=== PATIENT | female | born 1940 | race Caucasian/White ===

== ENCOUNTER → 2016-10-19 | Outpatient (CLI) | payer OTHER ==
[~2016-10-19] VITALS: Ht 152.4 cm; Wt 82.3 kg
[~2016-10-19] MED LIST: ALLEGRA ALLERG180 MG PO; ANTIVERT25 MG PO; BENTYL20 MG PO; IMODIUM MS REL1 EACH PO; JANUMET 50/51 TABLET PO; KEFLEX500 MG PO; LEVOTHYROXINE112 MCG PO; LO-DOSE ASPIRIN81 M2 PO; PAXIL40 MG PO; PROTONIX40 MG PO; ZOFRAN4 MG PO
[2016-10-19 12:22] LABS: POINT-OF-CARE METER ID UU13113694
== END | disposition home or self-care (01) ==
LOC: AMB 11:38
PROVIDERS: Internal Medicine
DX: R10.12 Left upper quadrant pain (principal); R19.7 Diarrhea, unspecified; D12.0 Benign neoplasm of cecum; D12.5 Benign neoplasm of sigmoid colon; R10.13 Epigastric pain; Z79.82 Long term (current) use of aspirin; Z68.35 Body mass index [BMI] 35.0-35.9, adult
CPT/HCPCS: 82948; 88305; 93005; J2250

== ENCOUNTER 2018-01-31 23:56 | Emergency (ER) | payer OTHER ==
[~2018-01-31] VITALS: Ht 152.4 cm; Wt 82.8 kg
[2018-02-01 00:59] LABS: BASOPHIL (%) 0.4 % (0-1); BASOPHIL COUNT 0.1 K/uL (0-0.1); EOSINOPHIL (%) 2.8 % (0-5); EOSINOPHIL COUNT 0.4 K/uL (0-0.3); HEMATOCRIT 41.8 % (36.0-46.0); HEMOGLOBIN 14.1 G/DL (11.9-15.5); IMMATURE GRANULOCYTE (%) 0.6 % (0.0-0.7); LYMPHOCYTE COUNT 2.8 K/uL (1.0-2.8); MCH 30.5 PG (29.0-34.0); MCHC 33.7 G/DL (30.0-36.0); MCV 90.3 FL (83-99); MONOCYTE COUNT 1.1 K/uL (0-0.8); NEUTROPHIL (%) 67.2 % (45-76); NEUTROPHIL COUNT 9.1 K/uL (1.8-6.4); PLATELET COUNT 296 K/uL (156-360); RBC DIS.WIDTH-CV 12.9 % (11.8-14.6); RBC DIS.WIDTH-SD 42.3 % (39-53); RED BLOOD COUNT 4.63 M/uL (3.80-5.20); WHITE BLOOD COUNT 13.5 K/uL (4.1-10.2)
[2018-02-01 01:14] LABS: PTT 29.3 SEC (25-37)
[2018-02-01 01:15] LABS: ALBUMIN 3.9 g/dL (3.2-4.8); CHLORIDE 100 mEq/L (99-109); POTASSIUM 4.8 mEq/L (3.7-5.4); SODIUM 138 mEq/L (136-147)
[2018-02-01 01:16] LABS: MAGNESIUM 1.8 mg/dL (1.3-2.7)
[2018-02-01 01:17] LABS: GLUCOSE 220 mg/dL (70-99); TOTAL PROTEIN 6.5 g/dL (6.4-8.3)
[2018-02-01 01:19] LABS: TOTAL BILIRUBIN 0.5 mg/dL (0.0-1.0)
[2018-02-01 01:21] LABS: ALKALINE PHOSPHATASE 67 IU/L (3-129); GFR ESTIMATE (CALCULATED) 57 mL/min/
[2018-02-01 01:22] LABS: UREA NITROGEN (BUN) 20 mg/dL (9-23)
[2018-02-01 01:23] LABS: AST (GOT) 21 IU/L (2-34)
[2018-02-01 01:24] LABS: ALT (GPT) 21 IU/L (3-49)
[2018-02-01 01:29] LABS: TROP-I INTERPRETATION NEGATIVE; TROPONIN-I < 0.01 ng/mL (0.0-0.30)
[2018-02-01] MEDS ORDERED: LORTAB 5-325 M1 EACH PO (02:49)
[2018-02-01] MEDS ORDERED: COLACE100 MG PO (02:49)
[2018-02-01 03:37] VITALS: BP 135/79
== END 2018-02-01 03:42 | disposition home or self-care (01) ==
LOC: EME → TRA 23:56 → EME 23:56 → EDBD 23:56 → EME 02-01 03:42
PROVIDERS: Emergency Medicine
DX: S22.42XA Multiple fractures of ribs, left side, initial encounter for closed fracture (principal); W10.9XXA Fall (on) (from) unspecified stairs and steps, initial encounter; R10.12 Left upper quadrant pain; R00.0 Tachycardia, unspecified; J98.11 Atelectasis; K57.30 Diverticulosis of large intestine without perforation or abscess without bleeding; K44.9 Diaphragmatic hernia without obstruction or gangrene; R16.0 Hepatomegaly, not elsewhere classified; Z90.710 Acquired absence of both cervix and uterus; Z79.84 Long term (current) use of oral hypoglycemic drugs; Z79.82 Long term (current) use of aspirin
CPT/HCPCS: 71260; 74177; 80053; 83735; 84484; 85025; 85610; 85730; 93005; 99281; 99285; J3010